=== PATIENT | female | born 1945 | race Caucasian/White ===

== ENCOUNTER 2016-11-30 09:47 | Emergency (ER) | payer MEDICARE, BC ==
[2016-11-30 10:43] LABS: BASOPHILS 0.4 % (0-2); EOSINOPHILS 0.2 % (0-7); HEMATOCRIT 37.2 % (36.0-48.0); HEMOGLOBIN 11.7 g/dL (12-16); IMMATURE GRANULOCYTES 0.2 % (0-5); LYMPHOCYTES 6.7 % (15-50); MCH 26.5 pg (26.0-34.0); MCHC 31.5 g/dL (31.0-37.0); MCV 84.4 fL (80.0-100.0); MEAN PLATELET VOLUME 9.4 fL (7.4-10.4); MONOCYTES 8.3 % (2-11); NEUTROPHILS 84.2 % (40-80); PLATELET COUNT 331 10x3/uL (130-400); RBC 4.41 10x6/uL (4.00-5.40); WBC 9.5 10x3/uL (4.8-10.8)
[2016-11-30 11:09] LABS: ANION GAP 10.8 mmol/L (8-16); C-REACTIVE PROTEIN 13.4 mg/dL (0.0-0.9); CARBON DIOXIDE 28.3 mmol/L (21.0-32.0); CREATININE - SERUM 0.9 mg/dL (0.6-1.3); POTASSIUM - SERUM 4.1 mmol/L (3.5-5.1); URIC ACID 5.5 mg/dL (2.6-7.2)
== END 2016-11-30 11:48 | disposition home or self-care (01) ==
LOC: D.ER 09:47
PROVIDERS: Nurse Practitioner Acute Care
DX: L03.116 Cellulitis of left lower limb (principal); M32.9 Systemic lupus erythematosus, unspecified

== ENCOUNTER 2019-04-09 09:00 | Outpatient (CLI) | payer MEDICARE, BC | END 2019-04-09 10:00 | disposition home or self-care (01) | LOC: D.MAMMO 09:00 | PROVIDERS: ATTEND Internal Medicine | DX: Z12.31 Encounter for screening mammogram for malignant neoplasm of breast (principal) ==

== ENCOUNTER 2019-05-28 09:00 | Outpatient (CLI) | payer MEDICARE, BC | END 2019-05-28 10:00 | disposition home or self-care (01) | LOC: D.MAMMO 09:00 | PROVIDERS: ATTEND Internal Medicine | DX: R92.8 Other abnormal and inconclusive findings on diagnostic imaging of breast (principal) ==